=== PATIENT | male | born 1965 | race Caucasian/White ===

== ENCOUNTER 2020-09-10 08:11 | Inpatient (IN) ==
[2020-09-10] MEDS ORDERED: Albuterol/Ipratropium NEB.SOL (2.5/0.5 MG) 3 ML NEB.SOLN INH ONE ×4 (08:25→17:35)
[2020-09-10] MEDS ORDERED: Lactated Ringers 1000 ml BAG 1,000 ML IV ONE (10:21)
[2020-09-10 10:53] LABS: Venous Bicarbonate HCO3 26.5 mmol/L (24-28)
[2020-09-10 10:56] LABS: ABS Lymphocytes 0.5 10^3/ul (1.0-4.8); ABS Monocytes 0.2 10^3/ul (0-0.8); ABS Neutrophils 10.6 10^3/ul (1.5-7.7); Hematocrit 46 % (42-52); Hemoglobin 15.8 g/dL (14.0-18.0); Lymphocyte % 4.6 %; Mean Corpuscular HGB Conc 34 g/dL (31-36); Mean Corpuscular Hemoglobin 30 pg (27-31); Mean Corpuscular Volume 88 fL (80-94); Mean Platelet Volume 7.9 fL (7.4-10.4); Platelet Count 199 10^3/uL (150-450); Red Blood Count 5.21 10^6 /uL (4.18-5.48); Red Cell Distribution Width 14 % (10-15); White Blood Count 11.4 10^3/uL (3.5-10.8)
[2020-09-10] MEDS ORDERED: Albuterol 0.5% CONC CONTINUOUS NEB.SOL 5 mg/ml 20 ml BOT ONE (11:01)
[2020-09-10 11:24] LABS: Albumin 4.6 g/dL (3.2-5.2); Albumin/Globulin Ratio 1.8 (1-3); C Reactive Protein 30.4 mg/L (<8.01); Calcium 9.5 mg/dL (8.6-10.3); EGFR African American 143.5 (>60); EGFR Non-African American 118.6 (>60); Globulin 2.5 g/dL (2-4); Potassium 4.5 mmol/L (3.5-5.0); Total Bilirubin 0.5 mg/dL (0.2-1.0); Total Protein 7.1 g/dL (6.4-8.9)
[2020-09-10] MEDS ORDERED: Iohexol 350 (CONTRAST) 500 ML MDV IV ONE (15:10)
[2020-09-10] MEDS ORDERED: Magnesium Sulfate 2 gm BAG 2 GM/50 ML BAG IVPB ONE (17:35)
[2020-09-10] MEDS ORDERED: methylPREDNISolone 125 mg 2 ML VIAL IV ONE (17:35)
[2020-09-10] MEDS ORDERED: Lorazepam PYXIS KEY PRN (17:57)
[2020-09-10] MEDS ORDERED: LORazepam 2 mg VIAL 1 ml IV PUSH ONE (17:57)
[2020-09-10] MEDS ORDERED: LORazepam 2 mg VIAL 1 ml IV PUSH PRN (18:05)
[2020-09-10] MEDS ORDERED: Morphine 2 MG/ML SYRINGE IV PRN (18:18)
[2020-09-10] MEDS: Albuterol/Ipratropium NEB.SOL (2.5/0.5 MG) 3 ML NEB.SOLN INH SCH ×2 (20:43→23:24)
[2020-09-10] MEDS: Azithromycin 500 mg/250 ml NS 500 MG/250 ML BAG IVPB SCH (21:12)
[2020-09-10] MEDS: cefTRIAXone 1 gm/50 mL NS BAG 1 GM/50 ML BAG IVPB SCH (21:12)
[2020-09-11] MEDS: methylPREDNISolone SOD 40 mg/ml 1 ml VIAL IV SCH ×3 (01:42→17:30)
[2020-09-11] MEDS: Albuterol/Ipratropium NEB.SOL (2.5/0.5 MG) 3 ML NEB.SOLN INH SCH ×6 (03:12→23:29)
[2020-09-11 06:43] LABS: Hematocrit 44 % (42-52); Hemoglobin 14.9 g/dL (14.0-18.0); Mean Corpuscular HGB Conc 34 g/dL (31-36); Mean Corpuscular Hemoglobin 30 pg (27-31); Mean Corpuscular Volume 89 fL (80-94); Mean Platelet Volume 8.3 fL (7.4-10.4); Platelet Count 208 10^3/uL (150-450); Red Blood Count 4.99 10^6 /uL (4.18-5.48); Red Cell Distribution Width 14 % (10-15); White Blood Count 12.3 10^3/uL (3.5-10.8)
[2020-09-11 06:48] LABS: INR 1.06 (0.86-1.15)
[2020-09-11 07:00] LABS: Calcium 9.2 mg/dL (8.6-10.3); EGFR African American 156.5 (>60); EGFR Non-African American 129.4 (>60); Magnesium 2.2 mg/dL (1.9-2.7); Phosphorus 3.1 mg/dL (2.5-5.0); Potassium 4.5 mmol/L (3.5-5.0)
[2020-09-11] MEDS: CMCS: Meloxicam 7.5 mg TAB (NF) PO SCH (07:49)
[2020-09-11] MEDS: cefTRIAXone 1 gm/50 mL NS BAG 1 GM/50 ML BAG IVPB SCH (19:54)
[2020-09-11] MEDS: Azithromycin 500 mg/250 ml NS 500 MG/250 ML BAG IVPB SCH (20:58)
[2020-09-12] MEDS: Albuterol/Ipratropium NEB.SOL (2.5/0.5 MG) 3 ML NEB.SOLN INH SCH ×5 (02:01→22:21)
[2020-09-12] MEDS: methylPREDNISolone SOD 40 mg/ml 1 ml VIAL IV SCH (02:18)
[2020-09-12] MEDS: CMCS: Meloxicam 7.5 mg TAB (NF) PO SCH (09:56)
[2020-09-12] MEDS ORDERED: methylPREDNISolone SOD 40 mg/ml 1 ml VIAL IV ONE (13:04)
[2020-09-12] MEDS: cefTRIAXone 1 gm/50 mL NS BAG 1 GM/50 ML BAG IVPB SCH (18:27)
[2020-09-12] MEDS: Azithromycin 500 mg/250 ml NS 500 MG/250 ML BAG IVPB SCH (20:22)
[2020-09-13] MEDS: Albuterol/Ipratropium NEB.SOL (2.5/0.5 MG) 3 ML NEB.SOLN INH SCH ×7 (02:02→23:13)
[2020-09-13] MEDS: CMCS: Meloxicam 7.5 mg TAB (NF) PO SCH (07:57)
[2020-09-13] MEDS: Mometasone/Formoter 200/5 MDI INH SCH ×2 (08:45→22:55)
[2020-09-13] MEDS: cefTRIAXone 1 gm/50 mL NS BAG 1 GM/50 ML BAG IVPB SCH (17:08)
[2020-09-14] MEDS: Albuterol/Ipratropium NEB.SOL (2.5/0.5 MG) 3 ML NEB.SOLN INH SCH ×4 (02:45→19:04)
[2020-09-14] MEDS: Mometasone/Formoter 200/5 MDI INH SCH ×2 (07:20→19:05)
[2020-09-14] MEDS: CMCS: Meloxicam 7.5 mg TAB (NF) PO SCH (09:23)
[2020-09-14 09:42] LABS: ABS Basophils 0.1 10^3/ul (0-0.2); ABS Eosinophils 0.1 10^3/ul (0-0.6); ABS Lymphocytes 3.6 10^3/ul (1.0-4.8); ABS Monocytes 1.1 10^3/ul (0-0.8); Eosinophil % 1.1 %; Hematocrit 44 % (42-52); Hemoglobin 14.9 g/dL (14.0-18.0); Lymphocyte % 36.9 %; Mean Corpuscular HGB Conc 34 g/dL (31-36); Mean Corpuscular Hemoglobin 30 pg (27-31); Mean Corpuscular Volume 88 fL (80-94); Mean Platelet Volume 7.3 fL (7.4-10.4); Platelet Count 197 10^3/uL (150-450); Red Blood Count 4.98 10^6 /uL (4.18-5.48); Red Cell Distribution Width 14 % (10-15); White Blood Count 9.9 10^3/uL (3.5-10.8)
[2020-09-14 09:57] LABS: Calcium 8.9 mg/dL (8.6-10.3); EGFR African American 136.2 (>60); EGFR Non-African American 112.5 (>60); Potassium 3.6 mmol/L (3.5-5.0)
[2020-09-14] MEDS: cefTRIAXone 1 gm/50 mL NS BAG 1 GM/50 ML BAG IVPB SCH (17:28)
[2020-09-15] MEDS: Albuterol/Ipratropium NEB.SOL (2.5/0.5 MG) 3 ML NEB.SOLN INH SCH ×2 (00:47→08:00)
[2020-09-15] MEDS: Mometasone/Formoter 200/5 MDI INH SCH (07:59)
[2020-09-15] MEDS ORDERED: Albuterol/Ipratropium NEB.SOL (2.5/0.5 MG) 3 ML NEB.SOLN INH PRN (08:53)
[2020-09-15] MEDS: CMCS: Meloxicam 7.5 mg TAB (NF) PO SCH (09:15)
[2020-09-15 12:26] VITALS: BP 134/76
[2020-09-15] MEDS ORDERED: Albuterol HFA INHALER 8 gm MDI INH SCH (13:00)
== END 2020-09-15 13:01 | disposition home or self-care (01) | DRG 140 ==
LOC: ED 08:11 → ICU 17:56 → MEDTELE 09-11 12:16
PROVIDERS: ADMIT Surgery Surgical Critical Care; ATTEND Student in an Organized Health Care Education/Training Program